=== PATIENT | male | born 1990 | race Caucasian/White ===

== ENCOUNTER 2017-07-12 18:45 | Emergency (ER) | payer SELFPAY ==
[~2017-07-12] VITALS: Ht 180.3 cm; Wt 77.1 kg
[2017-07-12] MEDS ORDERED: IBUP600 PO (19:39)
[2017-07-12] MEDS ORDERED: Norco 5-325 Ta1 EACH PO (19:39)
== END 2017-07-12 19:58 | disposition home or self-care (01) ==
LOC: ER 18:45
DX: S01.311A Laceration without foreign body of right ear, initial encounter (principal); F17.200 Nicotine dependence, unspecified, uncomplicated; Z23 Encounter for immunization; X58.XXXA Exposure to other specified factors, initial encounter
CPT/HCPCS: 12011; 90471; 90714; 99283